=== PATIENT | male | born 1950 | race Caucasian/White ===

== ENCOUNTER 2016-05-08 13:17 | Outpatient (CLI) | payer MEDICARE, OTHER | END 2016-05-08 13:18 | disposition home or self-care (01) | LOC: BURLAB 13:17 | PROVIDERS: ATTEND Internal Medicine Hematology & Oncology | DX: C20 Malignant neoplasm of rectum (principal); R11.2 Nausea with vomiting, unspecified | CPT/HCPCS: 36415; 82378 ==

== ENCOUNTER 2016-09-15 13:43 | Outpatient (CLI) | payer MEDICARE, OTHER | END 2016-09-15 13:44 | disposition home or self-care (01) | LOC: BURLAB 13:43 | PROVIDERS: ATTEND Internal Medicine Hematology & Oncology | DX: C20 Malignant neoplasm of rectum (principal); R11.2 Nausea with vomiting, unspecified | CPT/HCPCS: 36415; 82378 ==